=== PATIENT | female | born 1955 | race Caucasian/White ===

== ENCOUNTER 2017-04-13 22:13 | Emergency (ER) | payer BC, OTHER ==
[~2017-04-13] VITALS: Ht 157.5 cm; Wt 90.0 kg
[2017-04-13 22:25] VITALS: Ht 157.5 cm; Wt 90.0 kg
--- NOTE | 2017-04-14 00:50 | ERD ---
ER Documentation Chief Complaint Date/Time DATE: 04/14/17 TIME: 00:45 Chief Complaint RT SIDE DICK X3 DAYS. THEN NUMBNESS TO RT SIDE FACE TONIGHT. DENIES n/V HPI 62-year-old female presents to emergency department for complaints of right- sided lower pain radiating to the right side of the face that started 3 days ago , it was upon opening closing the mouth, she denies any facial pain but complains of numbness and tingling in the right side of the face. Patient denies any nausea vomiting, numbness and tingling in other parts of the body, paralysis, facial droop. Patient denies any head injury. Patient denies any changes in balance or memory. Patient took ibuprofen for pain with mild relief. ROS All systems reviewed and are negative except as per history of present illness. Medications Home Meds Reported Medications [none] Unknown Strength No Conflict Check 04/14/17 Allergies Allergies: Coded Allergies: No Known Allergy (Unverified , 02/10/14) PMhx/Soc Medical and Surgical Hx: pt denies Medical Hx, pt denies Surgical Hx History of Surgery: No Anesthesia Reaction: No Hx Neurological Disorder: No Hx Respiratory Disorders: No Hx Cardiac Disorders: No Hx Psychiatric Problems: No Hx Alcohol Use: No Hx Substance Use: No Hx Tobacco Use: No Smoking Status: Never smoker FmHx Family History: No coronary disease, No diabetes, No other Physical Exam Vitals Vital Signs Date Time Temp Pulse Resp B/P Pulse Ox O2 Delivery O2 Flow Rate FiO2 04/13/17 22:25 97.0 78 20 153/70 98 Physical Exam GENERAL: The patient is well developed and appropriate for usual state of health, in no apparent distress. HEENT: Atraumatic. Ears: Normal tympanic membrane, no erythema or bulging. No ear canal swelling. No ear discharge. Nose: normal nasal turbinates, no erythema or swelling. Normal nasal discharge. Throat: oropharynx clear. No tonsillar swelling or tonsillar exudates. No lymphadenopathy. noted tenderness on the right temporomandibular joint. CHEST: Clear to auscultation bilaterally. There are no rales, wheezes or rhonchi. HEART: Regular rate and rhythm. No murmurs, clicks, rubs or gallops. No S3 or S4. ABDOMEN: Soft, nontender and nondistended. Good bowel sounds. No rebound or guarding. No gross peritonitis. No gross organomegaly or masses. No Omer sign or McBurney point tenderness. BACK: No midline or flank tenderness. EXTREMITIES: Equal pulses bilaterally. There is no peripheral clubbing, cyanosis or edema. No focal swelling or erythema. Full range of motion. Grossly neurovascularly intact. NEURO: Alert and oriented. Cranial nerves 2-12 intact. Motor strength in all 4 extremities with 5/5 strength. Sensation grossly intact. Normal speech and gait. SKIN: There is no apparent rash or petechia. The skin is warm and dry. HEMATOLOGIC AND LYMPHATIC: There is no evidence of excessive bruising or lymphedema. No gross cervical, axillary, or inguinal lymphadenopathy. Results 24 hrs PROCEDURE: CT facial bones without contrast CLINICAL INDICATION: Right sided facial and mandibular pain. TECHNIQUE: A CT of the face without contrast was performed utilizing axial sections from the mandible through the orbits. Coronal and sagittal images were also reformatted. One or more of the following dose reduction techniques were used: Automated exposure control, adjustment of the mA and/or kV according to patient size, use of iterative reconstruction technique. The exam CTDIvol = 29.46 mGy and DLP = 573.44 mGy-cm. COMPARISON: None available. FINDINGS: Frontal bone: Intact with the sinuses clear bilaterally. Ethmoid bone: Intact, the sinuses are clear. Maxilla: Intact, the sinuses are clear bilaterally. The remaining teeth show no evidence of zen apical lucency Nasal bones: Intact bilaterally. Zygomata: Intact bilaterally. Sphenoid bone: Intact, the sinuses are clear. Mandible: The patient with edentulous without maxillary teeth. There is a subtle area of focal lucency within the posterior right mandibular body, the erosive in appearance and unable to exclude an area of chronic infection. There is no evidence of fracture and the temporomandibular joints are normal. Temporal bones: No fractures are seen, the mastoid air cells are clear bilaterally. Soft tissues: Unremarkable. . The visualized lymph nodes are normal and there is no evidence of abscess RPTAT:HJJR IMPRESSION: 1. Subtle concave erosive type appearance involving the posterior right mandibular body in the prior location of a molar in this patient with no mandibular teeth. The finding may reflect the sequela of infection but no abscess is present. There is no evidence of fracture. 2. Unremarkable temporomandibular joints. 3. Remainder of the facial bones are unremarkable. Physician Siri Date Time Electronically viewed and signed by Gallo Madden Physician on 04/14/2017 00:50 JR/ CC: IKE LINDO NP Procedures/MDM Medical Decision Making: Patient symptoms are consistent with possible temporomandibular joint disease, can be also from possible erosive infection of the right lower molar area noted in the CT scan. No symptoms of any abscess. There is low suspicion for neurological emergencies at this time since patients neurologic exam is normal. Patient did not have any altered level consciousness , vomiting, changes in balance or memory and did not have any head injury. Patients CT scan of the mandible does not show any other infection. Prescription was given for Augmentin, ibuprofen, [place], is advised to see ENT doctor and dental specialist for further evaluation and management. Patient was advised to return to emergency department for any worsening symptoms. Dispostion: Home. Stable Disclaimer: Inadvertent spelling and grammatical errors are likely due to EHR/ dictation software use and do not reflect on the overall quality of patient care. Also, please note that the electronic time recorded on this note does not necessarily reflect the actual time of the patient encounter. Departure Diagnosis: Primary Impression: Mandible pain Condition: Stable Patient Instructions: Tmj Syndrome IKE LINDO NP Apr 14, 2017 00:50
--- NOTE | 2017-04-14 00:50 | RADRPT ---
PROCEDURE: CT facial bones without contrast CLINICAL INDICATION: Right sided facial and mandibular pain. TECHNIQUE: A CT of the face without contrast was performed utilizing axial sections from the richardson ble through the orbits. Coronal and sagittal images were also reformatted. One or more of the follo wing dose reduction techniques were used: Automated exposure control, adjustment of the mA and/or kV according to patient size, use of iterative reconstruction technique. The exam CTDIvol = 29.46 mGy and DLP = 573.44 mGy-cm. COMPARISON: None available. FINDINGS: Frontal bone: Intact with the sinuses clear bilaterally. Ethmoid bone: Intact, the sinuses are clear. Maxilla: Intact, the sinuses are clear bilaterally. The remaining teeth show no evidence of zen ap ical lucency Nasal bones: Intact bilaterally. Zygomata: Intact bilaterally. Sphenoid bone: Intact, the sinuses are clear. Mandible: The patient with edentulous without maxillary teeth. There is a subtle area of focal janes ency within the posterior right mandibular body, the erosive in appearance and unable to exclude an area of chronic infection. There is no evidence of fracture and the temporomandibular joints are no rmal. Temporal bones: No fractures are seen, the mastoid air cells are clear bilaterally. Soft tissues: Unremarkable. . The visualized lymph nodes are normal and there is no evidence of a bscess RPTAT:HJJR IMPRESSION: 1. Subtle concave erosive type appearance involving the posterior right mandibular body in the prio r location of a molar in this patient with no mandibular teeth. The finding may reflect the sequela of infection but no abscess is present. There is no evidence of fracture. 2. Unremarkable temporomandibular joints. 3. Remainder of the facial bones are unremarkable. Physician Siri Date Time Electronically viewed and signed by Physician Siri on 04/14/2017 00:50 JR/
[2017-04-14] MEDS ORDERED: IBUP-1542 PO (01:03)
[2017-04-14] MEDS ORDERED: HYDR-906 PO (01:03)
[2017-04-14] MEDS ORDERED: AMOX1TAB10 PO (01:03)
== END 2017-04-14 01:32 | disposition home or self-care (01) ==
LOC: FTE 22:13
DX: R68.84 Jaw pain (principal)
CPT/HCPCS: 70486; 93005; Z7502